=== PATIENT | female | born 1950 | race African-American/Black ===

== ENCOUNTER 2016-05-03 16:36 | Emergency (ER) | payer MEDICARE, MEDICAID ==
[~2016-05-03] VITALS: Ht 165.1 cm; Wt 130.0 kg
[~2016-05-03 16:36] MED LIST: AMLO5 PO; GLUC-15; HYDR12.57 PO; INSU0.5M12; METF500T PO; METO25TA3 PO; NOVO7030P2 SQ; NOVORP2 SQ; PRIN20TA2 PO; ZOCO40TA PO; lancets
[2016-05-03 16:41] VITALS: BP 223/94; PULSE 77; RESP 14; TEMP 98.1; O2SAT 100
--- NOTE | 2016-05-03 19:53 | PD ---
HPI Chief Complaint: Pain: Acute or Chronic Time Seen by Provider: 18:51 Travel History International Travel<30 days: No Contact w/Intl Traveler<30days: No Traveled to known affect area: No History of Present Illness HPI Patient is a 66 year old female with a history of diabetic neuropathy who presents at the ED with bilateral shoulder pain, left flank pain, and pain in the mid spine. She was on the bus yesterday, and while standing to allow the business line manager to secure her wheel chair she fell. After the fall she was able to go get off of the floor and go home with little difficulty. Today she woke up with pain and soreness. She denies any weakness or numbness of her extremities , and denies difficuty with range of motion. She has limited mobility, and sensation due to her diabetic neuropathy. Due to her limited sensation, she wanted to come in to verify that she has not broken any bones. History Past Medical History Menopausal: Yes Social History Alcohol Use: No Tobacco Use: No Allergies-Medications (Allergen,Severity, Reaction): Coded Allergies: No Known Allergies (Verified , 01/29/16) Reported Meds & Prescriptions Reported Meds & Active Scripts Active Metformin (Metformin HCl) 500 Mg Tab 500 Mg PO BIDPC With meals Zocor (Simvastatin) 40 Mg Tab 40 Mg PO HS [lancets] Box Reported Hydrochlorothiazide 12.5 Mg Cap 25 Mg PO DAILY Prinivil (Lisinopril) 20 Mg Tab 40 Mg PO DAILY Norvasc (Amlodipine Besylate) 5 Mg Tab 5 Mg PO DAILY Metoprolol Tartrate 25 Mg Tab 50 Mg PO Q12HR Insulin Syringe/0.5ML/31G X 08/30" 1 Mis Mis 1 Box .ROUTE DIRECTED Glucose Meter Test Strips (Glucose Blood) 1 Rafaela Rafaela BID Physical Exam Narrative GENERAL: wellgroomed well developed obese female SKIN: Warm and dry. HEAD: Atraumatic. Normocephalic. EYES: Pupils equal and round. No scleral icterus. No injection or drainage. ENT: No nasal bleeding or discharge. Mucous membranes pink and moist. NECK: Trachea midline. No JVD. CARDIOVASCULAR: Regular rate and rhythm. RESPIRATORY: No accessory muscle use. Clear to auscultation. Breath sounds equal bilaterally. GASTROINTESTINAL: Abdomen soft, non-tender, nondistended. Hepatic and splenic margins not palpable. MUSCULOSKELETAL: Extremities without clubbing, cyanosis, or edema. No obvious deformities. Mild tenderness on palpation of shoulders over posterior shoulder girdle but no bony tenderness. Full active ROM of both shoulders through all ranges. pms intact. Minimal tenderness of low T spine/High Lspine. just to the left of midline. No stepoff. NEUROLOGICAL: Awake and alert. No obvious cranial nerve deficits. Motor grossly within normal limits. Five out of 5 muscle strength in the arms and legs. Normal speech. PSYCHIATRIC: Appropriate mood and affect; insight and judgment normal. Data Data Last Documented VS Vital Signs Date Time Temp Pulse Resp B/P Pulse Ox O2 Delivery O2 Flow Rate FiO2 05/03/16 19:19 16 05/03/16 16:41 98.1 77 223/[address] Cerv Spine W/O Contrast (05/03/16 19:38) Ct Thor Spine W/O Contrast (05/03/16 19:38) Ct Lumb Spine W/O Contrast (05/03/16 19:38) MDM Medical Decision Making Medical Screen Exam Complete: Yes Emergency Medical Condition: Yes Differential Diagnosis muscle sprain fracture of shoulder and spine occult malignancy Narrative Course 66 year old female presents for evaluation of back pain after fall. SHe is concerned because she has a long history of neuorpathy and states she doesn't know if she would be able to feel a fracture. Cauda equina ROS is negative. CT CTL spine negative. She is able to ambulate. Discussed symptomatic management and return to ED criteria. She is stable for discharge. She was offered pain medication in ED and declined. Diagnosis Primary Impression: Back pain Qualified Code: M54.42 - Acute midline low back pain with bilateral sciatica Disposition: DISCHARGE HOME Condition: Stable Mick Zuñiga MD May 03, 2016 19:53
--- NOTE | 2016-05-03 21:06 | RADRPT ---
EXAM DATE/TIME: 05/03/2016 20:24 [facility] COMPARISON: No previous studies available for comparison. INDICATIONS : Fell yesterday. Neck pain. RADIATION DOSE: 46.58 CTDIvol (mGy) MEDICAL HISTORY : Hypertension. SURGICAL HISTORY : None. ENCOUNTER: Initial ACUITY: 2 days PAIN SCALE: 6/10 LOCATION: neck TECHNIQUE: Volumetric scanning of the cervical spine was performed. Multiplanar reconstructions i n the sagittal, coronal and oblique axial planes were performed. Using automated exposure control a nd adjustment of the mA and/or kV according to patient size, radiation dose was kept as low as reason ably achievable to obtain optimal diagnostic quality images. FINDINGS: Alignment is anatomic in the sagittal and coronal projections. C1 and C2 are intact. C2-C3: The bony spinal canal is normal in size. No evidence of disc bulge or herniation. The neura l foramina are bilaterally patent. C3-C4: There is some generalized disc bulging at C3-C4 causing some flattening of the anterior theca l space. Neural foramina are adequate. C4-C5: Mild uncinate ridging is present. Neural foramina are adequate. C5-C6: The bony spinal canal is normal in size. No evidence of disc bulge or herniation. The neura l foramina are bilaterally patent. C6-C7: Moderate uncinate ridging is present. There is no spinal stenosis or neural foraminal encroa chment. C7-T1: The bony spinal canal is normal in size. No evidence of disc bulge or herniation. The neura l foramina are bilaterally patent. CONCLUSION: Mild degenerative changes without fracture. Edward Rosen MD FACR on May 03, 2016 at 20:55 Board Certified Radiologist. This report was verified electronically.
--- NOTE | 2016-05-03 21:14 | RADRPT ---
EXAM DATE/TIME: 05/03/2016 20:32 [facility] COMPARISON: No previous studies available for comparison. INDICATIONS : Fell yesterday. Back pain. RADIATION DOSE: 41.77 CTDIvol (mGy) ; Combined studies - Thoracic Spine/Lumbar Spine MEDICAL HISTORY : Hypertension. SURGICAL HISTORY : None. ENCOUNTER: Initial ACUITY: 2 days PAIN SCALE: 6/10 LOCATION: Thoracic TECHNIQUE: Volumetric scanning of the thoracic spine was performed. Multiplanar reconstructions in the sagittal, coronal and oblique axial planes were performed. Using automated exposure control a nd adjustment of the mA and/or kV according to patient size, radiation dose was kept as low as reason ably achievable to obtain optimal diagnostic quality images. FINDINGS: There is good preservation of vertebral body and disc space heights. Alignment is anato william. There are anterior osteophytes present throughout the thoracic spine. There is no significant p osterior impression on the thecal sac. Fracture is not appreciated. Minimal motion is evident. CONCLUSION: There is no evidence of compression fracture. Edward Rosen MD FACR on May 03, 2016 at 21:06 Board Certified Radiologist. This report was verified electronically.
--- NOTE | 2016-05-03 21:22 | RADRPT ---
EXAM DATE/TIME: 05/03/2016 20:32 [facility] COMPARISON: No previous studies available for comparison. INDICATIONS : Fell yesterday. Back pain. RADIATION DOSE: 41.77 CTDIvol (mGy) ; Combined studies - Thoracic Spine/Lumbar Spine MEDICAL HISTORY : Hypertension. SURGICAL HISTORY : None. ENCOUNTER: Initial ACUITY: 2 days PAIN SCALE: 6/10 LOCATION: Lumbar TECHNIQUE: Volumetric scanning of the lumbar spine was performed. Multiplanar reconstructions in the sagittal, coronal and oblique axial planes were performed. Using automated exposure control and adjustment of the mA and/or kV according to patient size, radiation dose was kept as low as reasonab ly achievable to obtain optimal diagnostic quality images. FINDINGS: There is good preservation of vertebral body and disc space heights. There is a vacu um disc at L5-S1. Alignment is reasonably anatomic. Vena cava filter is evident. T12-L1: The thecal sac has a normal diameter. No evidence of disc bulge or protrusion. The neural foramina are patent bilaterally. L1-L2: The thecal sac has a normal diameter. No evidence of disc bulge or protrusion. The neural foramina are patent bilaterally. L2-L3: The thecal sac has a normal diameter. No evidence of disc bulge or protrusion. The neural foramina are patent bilaterally. L3-L4: The thecal sac has a normal diameter. No evidence of disc bulge or protrusion. The neural foramina are patent bilaterally. L4-L5: Mild degenerative changes are present in the facets. Neural foramina are adequate. L5-S1: Moderate facet disease is present with a vacuum change evident. Central to right-sided dis c protrusion. There are moderate degenerative changes in the facets. CONCLUSION: 1. Degenerative disc disease at L4-5. 2. Moderate right-sided disc protrusion at L5-S1. Edward Rosen MD FACR on May 03, 2016 at 21:13 Board Certified Radiologist. This report was verified electronically.
[2016-05-10] MEDS ORDERED: [UNRECOGNIZED DRUG - SUPPLY] (15:41)
[2016-05-10] MEDS ORDERED: [UNRECOGNIZED DRUG - OTHER] (15:41)
[2016-05-10] MEDS ORDERED: [UNRECOGNIZED DRUG - CODE] (15:41)
[2016-05-10] MEDS ORDERED: [UNRECOGNIZED DRUG - SUPPLY] (15:46)
[2016-06-20] MEDS ORDERED: OXYB5TAB10 PO (15:09)
[2016-06-20] MEDS ORDERED: NOVO7030P2 SQ (15:12)
[2016-07-08] MEDS ORDERED: BLOOD GLUCOSE T1 TES (15:03)
[2016-07-19] MEDS ORDERED: [UNRECOGNIZED DRUG - OTHER] (15:39)
[2016-07-25] MEDS ORDERED: [UNRECOGNIZED DRUG - OTHER] (13:02)
[2016-08-16] MEDS ORDERED: LISI-519 PO (11:27)
[2016-08-16] MEDS ORDERED: VICT18IN SQ (11:32)
[2016-08-16] MEDS ORDERED: OXYB5TAB10 PO (11:34)
[2016-08-16] MEDS ORDERED: ZOCO40TA PO (11:35)
[2016-08-17] MEDS ORDERED: METF500T PO (08:37)
[2016-08-17] MEDS ORDERED: NOVO7030P2 SQ (08:37)
[2016-08-17] MEDS ORDERED: lancets (08:37)
[2016-08-17] MEDS ORDERED: BLOOD GLUCOSE T1 TES (08:37)
[2016-08-19] MEDS ORDERED: [UNRECOGNIZED DRUG - SUPPLY] (13:32)
[2016-08-25] MEDS ORDERED: WHEEMIS3 (10:09)
[2016-09-19] MEDS ORDERED: OXYB5TAB10 PO (12:52)
[2016-09-23] MEDS ORDERED: GLUCTES12 (14:23)
[2016-10-06] MEDS ORDERED: [UNRECOGNIZED DRUG - OTHER] (09:03)
== END 2016-05-03 21:30 | disposition home or self-care (01) ==
LOC: NEPA 16:36
DX: M54.9 Dorsalgia, unspecified (principal); M25.511 Pain in right shoulder; M25.512 Pain in left shoulder; M54.6 Pain in thoracic spine; E11.40 Type 2 diabetes mellitus with diabetic neuropathy, unspecified; W18.39XA Other fall on same level, initial encounter; Y92.811 Bus as the place of occurrence of the external cause
CPT/HCPCS: 72125; 72128; 72131